=== PATIENT | female | born 1965 | race African-American/Black ===

== ENCOUNTER 2024-07-14 21:39 | Emergency (ER) | payer SELFPAY ==
[~2024-07-14] VITALS: Ht 170.2 cm; Wt 71.0 kg
[2024-07-14 21:47] VITALS: TEMP 98.2
[2024-07-14 22:32] VITALS: PULSE 69; RESP 18; O2SAT 99
[2024-07-14] MEDS: IPRATROPIUM/ALBUTEROL 0.5-3(2.5)MG/3ML NEB HHN ONE (22:33)
[2024-07-14 22:39] LABS: BG BASE EXCESS -1.6 mmol/L (-2.0-2.0); BG CARBOXYHEMOGLOBIN 3.3 % (0.5-1.5); BG DEOXYHEMOGLOBIN 1.7 % (0.0-5.0); BG FRACTION INSPIRED OXYGEN 28; BG HCO3 ACT 19.9 mmol/L (22.0-26.0); BG METHEMOGLOBIN 0.2 % (0.0-1.5); BG OXYGEN SATURATION 98.2 % (92.0-98.5); BG OXYHEMOGLOBIN 94.8 % (94.0-97.0); BG PCO2 25.9 mmHg (35.0-45.0); BG PH 7.504 (7.350-7.450); BG PO2 111.7 mmHg (75.0-100.0); BG SAMPLE SITE RIGHT RADIAL; BG VENT MODE NASAL CANNULA
[2024-07-14 22:50] LABS: BASOPHILS % 0.9 % (0.0-2.0); EOSINOPHILS % 0.4 % (0.0-5.0); HEMATOCRIT. 40.2 % (36.0-48.0); HEMOGLOBIN. 13.2 g/dL (12.0-16.0); LYMPHOCYTES % 24.3 % (20.0-50.0); MEAN CORPUSCULAR HEMOGLOBIN 29.2 pg (28.0-32.0); MEAN CORPUSCULAR HGB CONC 32.8 g/dL (31.0-37.0); MEAN CORPUSCULAR VOLUME 88.9 fL (81.0-99.0); MEAN PLATELET VOLUME 9.6 fl (7.4-10.4); MONOCYTES % 5.9 % (2.0-8.0); NEUTROPHILS % 68.5 % (40.0-76.0); PLATELET 264 x1000/uL (130-400); RED BLOOD CELL COUNT 4.52 mill/uL (4.2-5.4); RED CELL DISTRIBUTION WIDTH 14.6 % (11.6-14.6); WHITE BLOOD COUNT 9.3 x1000/uL (4.5-11.0)
[2024-07-14 23:13] LABS: CHLORIDE 115 mEq/L (98-107); POTASSIUM 3.5 mEq/L (3.5-5.1)
[2024-07-14 23:14] LABS: CARBON DIOXIDE 23 mEq/L (21-32); SODIUM 145 mEq/L (136-145)
[2024-07-14 23:19] LABS: CREATININE 0.8 mg/dL (0.6-1.0)
[2024-07-14 23:20] LABS: GLUCOSE 106 mg/dL (70-105); UREA NITROGEN BLOOD 5 mg/dL (9-23)
[2024-07-14 23:21] LABS: ALANINE AMINOTRANSFERASE 16 IU/L (10-49); ALBUMIN 4.7 g/dL (3.2-4.8); ASPARTATE AMINOTRANSFERASE 17 IU/L (<34)
[2024-07-14 23:22] LABS: BILIRUBIN DIRECT 0.1 mg/dL (<=3.0); BILIRUBIN TOTAL 0.6 mg/dL (0.1-1.0); PROTEIN TOTAL 7.4 g/dL (6.0-8.3)
[2024-07-14 23:23] LABS: TROPONIN I HIGH SENSITIVITY < 4 ng/L (3.0-34)
[2024-07-14] MEDS: DEXAMETHASONE 2MG TABLET PO ONE (23:48)
[2024-07-14 23:58] VITALS: BP 136/73; PULSE 81; RESP 16
== END 2024-07-14 23:59 | disposition home or self-care (01) ==
LOC: ER 21:39
DX: F43.9 Reaction to severe stress, unspecified (principal); F41.9 Anxiety disorder, unspecified; J44.9 Chronic obstructive pulmonary disease, unspecified; I10 Essential (primary) hypertension
CPT/HCPCS: 80076; 80048; 83880; 85025; 84484; 36415; 71045; 94640; 82805; 82375; 93005; 99285; 36600; J8540; Z7610 ×5